=== PATIENT | female | born 1950 | race Caucasian/White ===

== ENCOUNTER → 2016-07-03 | Outpatient (CLI) | payer OTHER ==
--- NOTE | 2016-07-04 16:26 | DI ---
CT BONE DENSITOMETRY OF THE SPINE AND HIP, 07/03/2016 11:15 AM : Clinical History: Asymptomatic post menopausal patient. Screening. Previous Exam: 03/25/2015. 3D Quantitative CT (QCT) Bone Mineral Densitometry: The [place] scans are normal. Low dose scans are sampled through the midbodies of L1 and L2. Average bone mineral density (BMD) is 191.2 mg/mL corresponding to a volumetric T-score of 0.9 and Z-score of 3.8. The [employer]'s (ACR) volumetric QCT BMD conversion table categorizes this patient as having normal bone mineral density of the lumbar spine. The previous study gave a bone min eral density of 120.7 mg per mL. Axial scans of the lumbar spine show qualitative agreement with the quantitative analysis of the current study. There has been a definite increased density within the tr abecular bone since the last study. CT X-Ray Absorptiometry (CTXA) Bone Mineral Densitometry of the Left Hip: Total hip BMD: 755 mg/cm2 T-score: -1.4 Z-score: -0.2 Femoral neck BMD: 626 mg/cm2 T-score: -1.5 Z-score: -0.2 Note: T-scores of the spine and hip are discordant approximately 40% of the times. Changes in actual QCT or CTXA/DEXA measurements are more reliable in assessment of change in BMD status rather than padmini nges in T-scores. READIN. The QCT lumbar spine BMD value by ACR's 3D volumetric to 2D areal conversion categorizes this pat ient as having normal bone mineral density of the lumbar spine. The QCT spine T-score is 0.9. 2. The CTXA total hip and femoral neck BMD T-scores are -1.4 and -1.5, respectively. The left total hip T-score indicates this patient has osteopenia of the total hip.
== END ==
LOC: CT 10:01
PROVIDERS: ATTEND Physician Assistant Surgical
DX: M85.80 Other specified disorders of bone density and structure, unspecified site (principal); Z78.0 Asymptomatic menopausal state
CPT/HCPCS: 77078